=== PATIENT | male | born 1960 | race Hispanic/Latino ===

== ENCOUNTER 2020-06-01 09:39 | Emergency (ER) | payer SELFPAY ==
[~2020-06-01] VITALS: Ht 167.6 cm; Wt 80.0 kg
[2020-06-01 11:59] VITALS: BP 150/88
== END 2020-06-01 11:59 | disposition home or self-care (01) | DRG 605 ==
LOC: ED 09:39
DX: S20.211A Contusion of right front wall of thorax, initial encounter (principal); V18.0XXA Pedal cycle driver injured in noncollision transport accident in nontraffic accident, initial encounter; Y93.55 Activity, bike riding; Y92.410 Unspecified street and highway as the place of occurrence of the external cause